=== PATIENT | male | born 1990 ===

== ENCOUNTER 2023-07-01 11:41 | Outpatient (CLI) | payer OTHER, SELFPAY | END 2023-07-01 11:42 | disposition home or self-care (01) | PROVIDERS: Visit Provider Nurse Practitioner Family | DX: Z79.899 Other long term (current) drug therapy (principal) | CPT/HCPCS: 80053; 82306; 84443 ==

== ENCOUNTER 2023-10-07 09:56 | Outpatient (CLI) | payer OTHER, SELFPAY | END 2023-10-07 09:57 | disposition home or self-care (01) | PROVIDERS: PCP Emergency Medicine; Visit Provider Emergency Medicine | DX: R00.0 Tachycardia, unspecified (principal); Z13.29 Encounter for screening for other suspected endocrine disorder | CPT/HCPCS: 80048; 84443 ==